=== PATIENT | female | born 2000 | race Caucasian/White ===

== ENCOUNTER 2021-12-11 12:35 | Emergency (ER) | payer OTHER ==
[2021-12-11 13:15] VITALS: BP 114/65; PULSE 112; RESP 20; TEMP 98.2
[2021-12-11] MEDS ORDERED: DIPH,PERTUS(ACELL)TETVAC-LF 0.5 ML VIAL IM ONE (13:33)
--- NOTE | 2021-12-11 13:43 | ED ---
Animal Bite HPI - General Chief Complaint: Animal Bite Stated Complaint: Cat bite Time Seen by Provider: 12/11/21 13:30 Source: patient, RN notes reviewed, old records reviewed Mode of arrival: ambulatory Limitations: no limitations - History of Present Illness Initial Comments: 21-year-old female presents to the emergency room after being bitten and sc ratched by household cat last night. Today she woke up with increased pain and swelling to the right forearm. She denies any fevers and no other injuries. She is not sure of her tetanus shot is up-to-date. No health problems no medications on a daily basis MD Complaint: animal bite -: days(s) (1) Right: Forearm Animal: cat Description: household pet Mechanism: bite, scratch Context: playing with animal Associated Symptoms: none - Related Data Patient Tetanus UTD: No Previous Rx's Medication Instructions Recorded Amoxic-Pot Clav 875-125Mg 1 tab PO BID 10 Days #20 tab 12/11/21 [Augmentin 875-125] Allergies Allergy/AdvReac Type Severity Reaction Status Date / Time No Known Allergies Allergy Verified 12/11/21 13:15 Review of Systems ROS Statement: Those systems with pertinent positive or pertinent negative responses have been documented in the HPI. ROS Other: All systems not noted in ROS Statement are negative. Past Medical History Past Medical History: No Reported History Past Surgical History: No Surgical Hx Reported General Exam Limitations: no limitations General appearance: alert, in no apparent distress Head exam: Present: atraumatic Eye exam: Present: normal appearance. Absent: scleral icterus, conjunctival injection Neck exam: Present: full ROM. Absent: meningismus Respiratory exam: Absent: respiratory distress, accessory muscle use Cardiovascular Exam: Present: tachycardia GI/Abdominal exam: Present: soft. Absent: tenderness Extremities exam: Present: full ROM, normal capillary refill Right Forearm Wrist exam: Present: tenderness, swelling, erythema (Proximal forearm), other (Multiple abrasions and puncture wounds right forearm) Neuro motor exam: Present: wrist extension intact Neurosensory exam: Present: radial nerve intact, ulnar nerve intact, median nerve intact Vascular: Present: normal capillary refill, radial pulse. Absent: vascular compromise Neurological exam: Present: alert, oriented X3, normal gait Psychiatric exam: Present: normal affect, normal mood Skin exam: Present: warm, dry, erythema (approx 4cm x 3cm ) Course Vital Signs 12/11/21 13:12 Temperature 98.2 F Pulse Rate 112 H Respiratory 20 Rate Blood Pressure 114/65 O2 Sat by Pulse 99 Oximetry Medical Decision Making - Medical Decision Making Patient presents with a cat scratches and bites to her right forearm last night by household cat. She has full range of motion. There is no evidence of phlebitis. There is a 4 x 3 cm area of erythema she will be treated for cellulitis with augmentin. Patient's tetanus shot was also updated. Her and family member were directed to return to the emergency room with any increased pain, swelling or fevers. The area of erythema was outlined with skin marker. They're agreeable to this plan of care. Case discussed with Dr. Connor. Disposition Clinical Impression: Cat bite Disposition: HOME SELF-CARE Condition: Good Instructions (If sedation given, give patient instructions): Animal Bite (ED) Additional Instructions: Take antibiotics as prescribed and return to emergency room if any new or concerning symptoms including increased redness, pain or fevers. Prescriptions: Amoxic-Pot Clav 875-125Mg [Augmentin 875-125] 1 tab PO BID 10 Days #20 tab Is patient prescribed a controlled substance at d/c from ED?: No Referrals: Justyna Pak MD [Primary Care Provider] - 1-2 days Time of Disposition: 13:47
[2021-12-11] MEDS ORDERED: AMOXIC-POT CLAV 875-125MG 1 EACH TAB PO STA (13:47)
== END 2021-12-11 14:02 | disposition home or self-care (01) ==
LOC: EC 12:35
DX: S51.851A Open bite of right forearm, initial encounter (principal); Z23 Encounter for immunization; W55.01XD Bitten by cat, subsequent encounter
CPT/HCPCS: 90471; 90715; 99283

== ENCOUNTER 2022-01-30 20:14 | Emergency (ER) | payer OTHER ==
[2022-01-30 20:38] VITALS: TEMP 99
[2022-01-30] MEDS ORDERED: KETOROLAC 15 MG/ML 1 ML VIAL IM STA (21:04)
--- NOTE | 2022-01-30 21:41 | XR ---
EXAMINATION TYPE: XR ankle complete LT DATE OF EXAM: 01/30/2022 COMPARISON: NONE HISTORY: Ankle pain TECHNIQUE: 3 views FINDINGS: Ankle mortise is anatomic. I see no fracture nor dislocation. Joint spaces are normal. IMPRESSION: Negative left ankle exam. No fracture.
--- NOTE | 2022-01-30 21:42 | XR ---
EXAMINATION TYPE: XR tibia fibula LT DATE OF EXAM: 01/30/2022 COMPARISON: NONE HISTORY: Ankle pain TECHNIQUE: 2 view FINDINGS: The tibia and fibula appear intact. Knee joint and ankle joint appear intact. I see no frac ture. IMPRESSION: Negative left tibia and fibula exam.
--- NOTE | 2022-01-30 21:43 | XR ---
EXAMINATION TYPE: XR foot complete LT DATE OF EXAM: 01/30/2022 COMPARISON: NONE HISTORY: Pain TECHNIQUE: 3 views FINDINGS: Metatarsals are intact. The toes appear intact. I see no fracture nor dislocation. Joint sp aces are fairly normal. IMPRESSION: Negative left foot exam. No fracture.
--- NOTE | 2022-01-30 22:04 | ED ---
Lower Extremity Injury HPI - General Chief Complaint: Extremity Injury, Lower Stated Complaint: left ankle pain after fall down 4 stairs Time Seen by Provider: 01/30/22 20:40 Source: patient Mode of arrival: ambulatory Limitations: no limitations - History of Present Illness Initial Comments: Patient is a 21-year-old female presenting with chief complaint of left ankle pain. Patient states that she tripped while walking up the stairs, causing her ankle to roll. She is complaining of pain mainly near the lateral portion of the ankle, there is some radiation of pain to the lower leg and foot. Patient admits to pain with range of motion and swelling. Denies any numbness, tingling, weakness, loss of range of motion. - Related Data Previous Rx's Medication Instructions Recorded Amoxic-Pot Clav 875-125Mg 1 tab PO BID 10 Days #20 tab 12/11/21 [Augmentin 875-125] Allergies Allergy/AdvReac Type Severity Reaction Status Date / Time No Known Allergies Allergy Verified 01/30/22 20:38 Review of Systems ROS Statement: Those systems with pertinent positive or pertinent negative responses have been documented in the HPI. ROS Other: All systems not noted in ROS Statement are negative. Past Medical History Past Medical History: No Reported History History of Any Multi-Drug Resistant Organisms: None Reported Past Surgical History: No Surgical Hx Reported Past Psychological History: No Psychological Hx Reported Smoking Status: Current every day smoker Past Alcohol Use History: Daily Past Drug Use History: None Reported General Exam Limitations: no limitations General appearance: alert, in no apparent distress Head exam: Present: atraumatic, normocephalic, normal inspection Eye exam: Present: normal appearance, EOMI. Absent: scleral icterus, periorbital swelling Neck exam: Present: normal inspection Respiratory exam: Present: normal lung sounds bilaterally. Absent: respiratory distress, wheezes, rales, rhonchi, stridor Cardiovascular Exam: Present: regular rate, normal rhythm, normal heart sounds. Absent: systolic murmur, diastolic murmur, rubs, gallop, clicks Left Lower Leg exam: Present: normal inspection, tenderness. Absent: swelling Ankle exam: Present: full ROM, tenderness, swelling Foot/Toe exam: Present: full ROM, tenderness, swelling Neurovascular tendon exam: Present: no vascular compromise. Absent: motor deficit, sensory deficit Gait: antalgic Neurological exam: Present: alert, oriented X3, CN II-XII intact Psychiatric exam: Present: normal affect, normal mood Skin exam: Present: warm, dry, intact, normal color. Absent: rash Course Vital Signs 01/30/22 20:35 Temperature 99 F Pulse Rate 86 Respiratory 20 Rate Blood Pressure 120/79 O2 Sat by Pulse 99 Oximetry Medical Decision Making - Medical Decision Making Patient is a 21-year-old female presenting with chief complaint of left ankle pain. Patient injured it today while walking up the stairs. On examination there is tenderness and swelling. Pain is mainly focused near the lateral portion of the ankle. X-ray shows no acute fracture or dislocation. Patient is provided with ankle stirrup brace and crutches. Instructed on supportive treatment with rest, ice, compression, elevation as well as alternating Motrin and Tylenol. I'll up with PCP on Wednesday. Report back to ER if any new or worsening symptoms. Discussed return parameters answered all questions. Patient conveyed verbal understanding and agreed to the plan. My attending is Dr. Castle. Disposition Clinical Impression: Ankle sprain Disposition: HOME SELF-CARE Condition: Good Instructions (If sedation given, give patient instructions): Ankle Sprain (ED) Additional Instructions: Follow-up with PCP on Wednesday. Take Motrin and Tylenol as needed for pain control. Rest, ice, compress, elevate the joint. Use crutches and ankle brace. Is patient prescribed a controlled substance at d/c from ED?: No Referrals: Justyna Pak MD [Primary Care Provider] - 1-2 days Time of Disposition: 22:04
[2022-01-30 22:43] VITALS: BP 124/87; PULSE 75; RESP 16
== END 2022-01-30 22:43 | disposition home or self-care (01) ==
LOC: EC 20:14
DX: S93.402A Sprain of unspecified ligament of left ankle, initial encounter (principal); F17.200 Nicotine dependence, unspecified, uncomplicated; W10.9XXA Fall (on) (from) unspecified stairs and steps, initial encounter
CPT/HCPCS: 73590; 73610; 73630; 99283; 96372; L4350; J1885

== ENCOUNTER 2023-02-03 12:19 | Emergency (ER) | payer OTHER ==
[2023-02-03 12:41] VITALS: RESP 18
--- NOTE | 2023-02-03 14:49 | US ---
EXAMINATION TYPE: Transabdominal DATE OF EXAM: 02/03/2023 2:16 PM COMPARISON: NONE CLINICAL INDICATION: Female, 22 years old with history of bleeding; Bleeding. . *Patient thinks she is about 7 weeks . EXAM PERFORMED: Transvaginal (TV) and Transabdominal (TA) EXAM MEASUREMENTS: GESTATIONAL AGE / DATING Physician Established: Exact dates unknown, patient states she is about 7 weeks . Dates by LMP: Unknown Dates by First Scan: This is first scan at this facility. Dates by Current Scan for: Irregular-appearing gestational sac measures (9 weeks/ 0 days), irregu lar hyperechoic solid component within unable to define a clear CRL. MATERNAL ANATOMY Uterus: 7.7 x 5.5 x 4.3 cm Right Ovary: 2.6 x 1.7 x 1.8 cm Left Ovary: 2.2 x 1.1 x 0.9 cm Post CDS / Adnexa: Appear wnl Presence of free fluid: none Presence of corpus luteal cyst: Possible within right ovary, complex area seen: 1.3 x 1.0 x 1.0 cm. Presence of subchorionic bleed: GESTATION / SURVEY CRL: Clear pole not seen, Hyperechoic, irregular-shaped area seen within gestational sac measur es: 2.9 x 3.0 x 2.5 cm. MSD: 3.82 cm (9 weeks/0 days) Yolk Sac (normal less than 6mm): Not seen Heart Rate: No heart tones seen at this time IUP: No cardiac activity noted on today's scan-irregular shaped hyperechoic area seen within gestati onal sac as mentioned above. Date of LMP: Unknown Beta HcG (if available): Not available IMPRESSION: Findings likely in the basis of demise. Correlate clinically and with serial beta-hCG and/or ul trasound.
--- NOTE | 2023-02-03 15:00 | ED ---
Female Urogenital HPI - General Chief complaint: Vaginal Bleeding Stated complaint: vaginal bleeding - 7 wks Time Seen by Provider: 02/03/23 12:45 Source: patient, RN notes reviewed Mode of arrival: ambulatory Limitations: no limitations - History of Present Illness Initial comments: This a 22-year-old female presents emergency Department chief complaint vaginal bleeding early . Patient states that she believes she is around 7 weeks she had an ultrasound last [facility] showing a normal intrauterine with heartbeat. Patient states she was told she was over 6 weeks. Patient states that she started noticing some spotting and mild cramping. Denies any severe pain denies nausea vomiting diarrhea constipation states this is her first . Patient does not know blood type is. She has not had any recent lab work. - Related Data Previous Rx's Medication Instructions Recorded Amoxic-Pot Clav 875-125Mg 1 tab PO BID 10 Days #20 tab 12/11/21 [Augmentin 875-125] Allergies Allergy/AdvReac Type Severity Reaction Status Date / Time latex Allergy Rash/Hives Verified 02/03/23 12:41 Review of Systems ROS Statement: Those systems with pertinent positive or pertinent negative responses have been documented in the HPI. ROS Other: All systems not noted in ROS Statement are negative. Past Medical History Past Medical History: No Reported History History of Any Multi-Drug Resistant Organisms: None Reported Past Surgical History: No Surgical Hx Reported Past Psychological History: No Psychological Hx Reported Smoking Status: Vaper Past Alcohol Use History: None Reported Past Drug Use History: None Reported General Exam Limitations: no limitations General appearance: alert, in no apparent distress Head exam: Present: atraumatic, normocephalic, normal inspection Eye exam: Present: normal appearance, PERRL, EOMI. Absent: scleral icterus, conjunctival injection, periorbital swelling ENT exam: Present: normal exam, normal oropharynx, mucous membranes moist Neck exam: Present: normal inspection, full ROM. Absent: tenderness, meningismus, lymphadenopathy Respiratory exam: Present: normal lung sounds bilaterally. Absent: respiratory distress, wheezes, rales, rhonchi, stridor Cardiovascular Exam: Present: regular rate, normal rhythm, normal heart sounds. Absent: systolic murmur, diastolic murmur, rubs, gallop, clicks GI/Abdominal exam: Present: soft, normal bowel sounds. Absent: distended, tenderness, guarding, rebound, rigid Course Vital Signs 02/03/23 02/03/23 02/03/23 12:37 14:19 15:03 Temperature 98.7 F 97.6 F Pulse Rate 75 85 76 Respiratory 18 18 18 Rate Blood Pressure 120/71 120/68 115/74 O2 Sat by Pulse 99 99 100 Oximetry Medical Decision Making - Medical Decision Making Was pt. sent in by a medical professional or institution (ERROL Rutledge, SPACE SYSTEMS OPERATIONS MANAGER, urgent c are, hospital, or [facility]...) When possible be specific @ -No Did you speak to anyone other than the patient for history (EMS, parent, family, police, friend...)? What history was obtained from this source @ -No Did you review nursing and triage notes (agree or disagree)? Why? @ -I reviewed and agree with nursing and triage notes Were old charts reviewed (outside hosp., previous admission, EMS record, old EKG, old radiological studies, urgent care reports/EKG's, [facility] records)? Report findings @ -No old charts were reviewed Differential Diagnosis (chest pain, altered mental status, abdominal pain women, abdominal pain men, vaginal bleeding, weakness, fever, dyspnea, syncope, headache, dizziness, GI bleed, back pain, seizure, CVA, palpatations, mental health, musculoskeletal)? @ -Miscarriage, vaginal bleeding early , subchorionic hemorrhage EKG interpreted by me (3pts min.). @ -None X-rays interpreted by me (1pt min.). @ -None done CT interpreted by me (1pt min.). @ -None done U/S interpreted by me (1pt. min.). @ -Ultrasound shows evidence of demise. There is no evidence of heart beat What testing was considered but not performed or refused? (CT, X-rays, U/S, labs)? Why? @ -None What meds were considered but not given or refused? Why? @ -None Did you discuss the management of the patient with other professionals (professionals i.e. ERROL Rutledge, SPACE SYSTEMS OPERATIONS MANAGER, lab, RT, psych nurse, social media assistant, corncob pipe supervisor, teacher, chief mechanical officer, case worker)? Give summary @ -No Was smoking cessation discussed for >3mins.? @ -No Was critical care preformed (if so, how long)? @ -No Were there social determinants of health that impacted care today? How? (Homelessness, low income, unemployed, alcoholism, drug addiction, transportation, low edu. Level, literacy, decrease access to med. care, nursing home, rehab)? @ -No Was there de-escalation of care discussed even if they declined (Discuss DNR or withdrawal of care, Hospice)? DNR status @ -No What co-morbidities impacted this encounter? (DM, HTN, Smoking, COPD, CAD, Cancer, CVA, ARF, Chemo, Hep., AIDS, mental health diagnosis, sleep apnea, morbid obesity)? @ -None Was patient admitted / discharged? Hospital course, mention meds given and route, prescriptions, significant lab abnormalities, going to OR and other pertinent info. @ -Discharge patient has evidence of demise, miscarriage. Patient is a positive blood type. Patient is advised to follow-up with [facility] return parameters discussed. course Undiagnosed new problem with uncertain prognosis? @ -No Drug Therapy requiring intensive monitoring for toxicity (Heparin, Nitro, Insulin, Cardizem)? @ -No Were any procedures done? @ -No Diagnosis/symptom? @ -Miscarriage Acute, or Chronic, or Acute on Chronic? @ -Acute Uncomplicated (without systemic symptoms) or Complicated (systemic symptoms)? @ -Uncomplicated Side effects of treatment? @ -No Exacerbation, Progression, or Severe Exacerbation? @ -No Poses a threat to life or bodily function? How? (Chest pain, USA, AR, pneumonia, PE, COPD, DKA, ARF, appy, cholecystitis, CVA, Diverticulitis, Homicidal, Suicidal, threat to staff... and all critical care pts) @ -No - Lab Data Lab Results 02/03/23 02/03/23 Range/Units 13:14 13:14 HCG, Quant 148178.0 mIU/mL Blood Type A Positive Blood Type Recheck No Previous Record Bld Type Recheck Status [facility] ONLY Disposition Clinical Impression: Miscarriage Disposition: HOME SELF-CARE Condition: Stable Instructions (If sedation given, give patient instructions): Miscarriage (ED) Additional Instructions: Please return to the Emergency Department if symptoms worsen or any other concerns. Is patient prescribed a controlled substance at d/c from ED?: No Referrals: Justyna Pak MD [Primary Care Provider] - 1-2 days Time of Disposition: 14:59
[2023-02-03 15:09] VITALS: BP 115/74; PULSE 76; TEMP 97.6
== END 2023-02-03 15:10 | disposition home or self-care (01) ==
LOC: EC 12:19
DX: O03.9 Complete or unspecified spontaneous abortion without complication (principal); F17.290 Nicotine dependence, other tobacco product, uncomplicated; Z91.040 Latex allergy status
CPT/HCPCS: 36415; 76801; 76817; 84702; 86900; 86901; 99284

== ENCOUNTER 2023-05-07 21:20 | Outpatient (CLI) | payer OTHER ==
--- NOTE | 2023-05-08 03:06 | US ---
EXAM: US , Transvaginal CLINICAL HISTORY: Vaginal bleeding in . The patient has not had follow-up since her previous ultrasound examination. Reported cramping and dark red vaginal bleeding 1 week. Reported beta-hCG 174,995. TECHNIQUE: Real-time transvaginal obstetrical ultrasound of the maternal pelvis and a first trimester with image documentation. Transvaginal imaging was used for better evaluation of the fetus and adnexa. COMPARISON: First trimester pelvic ultrasound 02/03/2023 FINDINGS: Gestation: The uterus is enlarged measuring 10.4 x 7.1 x 10.1 cm. The previously noted gestational sac with previously seen internal tissue is the longer identified. In this region, there is now abnormal spongiform- appearing heterogeneous isoechoic to slightly hyperechoic predominantly solid tissue with minimal internal cystic components measuring up to 5.1 cm in diameter within extent of 8.5 x 8.1 cm. There is no appreciable internal vascular flow noted. Placenta/amniotic fluid: Cannot be adequately evaluated due to the early gestational age. Uterus/cervix: Unremarkable. No myometrial mass. Ovaries: The ovaries are not identified transabdominally or endovaginally. No adnexal mass. Free fluid: No free fluid. IMPRESSION: 1. The uterus is enlarged measuring 10.4 x 7.1 x 10.1 cm. The previously noted gestational sac with previously seen internal tissue is the longer identified. In this region, there is now abnormal spongiform- appearing heterogeneous isoechoic to slightly hyperechoic predominantly solid tissue with minimal internal cystic components measuring up to 5.1 cm in diameter within extent of 8.5 x 8.1 cm. There is no appreciable internal vascular flow noted. Given the patient's beta-hCG levels, the primary considerations are residual products of conception or a molar , given abnormal central tissue within the previously presumed gestational sac. 2. The ovaries are not identified transabdominally or endovaginally. This is presumably related to uterine size and bowel gas.
[2023-05-08 03:31] LABS: Basophils % (A) 0 %; Eosinophils # (A) 0.1 k/uL (0-0.7); Eosinophils % (A) 1 %; HCT 40.3 % (34.0-46.0); HGB 13.6 gm/dL (11.4-16.0); Lymphocytes # (A) 1.6 k/uL (1.0-4.8); Lymphocytes % (A) 21 %; MCH 31.9 pg (25.0-35.0); MCHC 33.7 g/dL (31.0-37.0); MCV 94.7 fL (80.0-100.0); Mean Platelet Volume 11.7; Monocytes # (A) 0.6 k/uL (0-1.0); Monocytes % (A) 8 %; Neutrophils # (A) 5.2 k/uL (1.3-7.7); Neutrophils % (A) 68 %; Platelet Count 157 k/uL (150-450); RBC 4.26 m/uL (3.80-5.40); RDW 12.8 % (11.5-15.5); WBC 7.7 k/uL (3.8-10.6)
[2023-05-08 03:56] VITALS: BP 121/70; PULSE 72; RESP 16; TEMP 96.8
--- NOTE | 2023-05-10 13:31 | P.MSEPDOC ---
Presenting Problems - Arrival Data Date of Arrival on Unit: 05/07/23 Time of Arrival on Unit: 21:20 Mode of Transport: Ambulatory - Complaint OB-Reason for Admission/Chief Complaint: Vaginal Bleeding Comment: Patient presents to triage with complaints of vaginal bleeding that has lasted 4/5 days. Medical History - Information : 1 Para: 0 Term: 0 : 0 Abortions: Spontaneous or Elective: 0 Number of Living Children: 0 - Gestational Age Gestational Age by ADITYA (wks/days): 20 Weeks and 5 Days - History Complications: No Care Review of Systems - Review of Systems Constitutional: No problems Breast: No problems ENT: No problems Cardiovascular: No problems Respiratory: No problems Gastrointestinal: No problems Genitourinary: No problems Musculoskeletal: No problems Neurological: No problems Skin: No problems Vital Signs - Temperature Temperature: 96.8 F Temperature Source: Temporal Artery Scan - Pulse Pulse Oximetery Pulse Rate: 72 Pulse Assessment Method: Pulse Oximetry - Respirations Respiratory Rate: 16 Oxygen Delivery Method: Room Air O2 Sat by Pulse Oximetry: 98 - Blood Pressure Right Arm Blood Pressure: 121/70 Blood Pressure Mean: 87 Blood Pressure Source: Automatic Cuff Physician Notification - Physician Notified Physician Notified Date: 05/08/23 Physician Notified Time: 03:10 Physician: Skye Henry New Order Received: Yes (Discharge home) Maternal Triage Index - Maternal Triage Index Presenting for scheduled procedure w/no complaint: No - Stat/Priority 1 Stat Priority 1: Yes Provider Notified: Skye Henry Provider Notified Time: 22:04 Criteria Met for Priority 1: Patient presents to triage with complaints of vaginal bleeding for 4/5 days. not FHR noted on doppler. Disposition - Disposition OB Disposition: Discharge to home, Written follow up instructions reviewed I agree with the RN Medical Screening Exam: Yes Case reviewed; plan agreed upon as documented in EMR&OBIX.: Yes Comments: Pt. was instructed to come to my office on 05/10/2023 at 10 am to discuss D&C for probable molar . Diagnosis: MISSED
== END 2023-05-08 03:54 ==
LOC: FBPOP 21:20
PROVIDERS: ATTEND Obstetrics & Gynecology
DX: O02.1 Missed abortion (principal); Z3A.20 20 weeks gestation of pregnancy; Z91.040 Latex allergy status
CPT/HCPCS: 36415; 86900; 86901; 85025; 86850; 81025; 84702; 76801; 76817; G0463; 99213

== ENCOUNTER → 2023-05-24 | Outpatient (CLI) | payer OTHER ==
[2023-05-24 17:07] LABS: HCT 42.5 % (34.0-46.0); HGB 13.7 gm/dL (11.4-16.0); Hypochromasia Slight; MCHC 32.3 g/dL (31.0-37.0); MCV 96.1 fL (80.0-100.0); Mean Platelet Volume 8.1; Platelet Count 261 k/uL (150-450); RBC 4.42 m/uL (3.80-5.40); WBC 8.2 k/uL (3.8-10.6)
[2023-05-24 19:40] LABS: Band Neutrophils % 2 %; Lymphocytes # (M) 2.13 k/uL (1.0-4.8); Metamyelocytes # (M) 0.25 k/uL (0); Metamyelocytes % 3 %; Monocytes # (M) 0.33 k/uL (0-1.0); Myelocytes # (M) 0.08 k/uL (0); Myelocytes % 1 %; Neutrophils % (M) 65 %; Nucleated Red Blood Cells 0 /100 WBC (0-0); Total Cells Counted 200
== END | disposition home or self-care (01) ==
LOC: LABPAT 16:18
PROVIDERS: ATTEND Obstetrics & Gynecology
DX: Z01.812 Encounter for preprocedural laboratory examination (principal); O03.4 Incomplete spontaneous abortion without complication; Z3A.00 Weeks of gestation of pregnancy not specified
CPT/HCPCS: 84702; 85025; 86480

== ENCOUNTER 2023-05-25 06:21 | Day surgery (SDC) | payer OTHER ==
--- NOTE | 2023-05-24 18:05 | P.HPOB ---
History of Present Illness H&P Date: 05/24/23 Chief Complaint: Incomplete This is a 22-year-old female 1 para 0 who was seen in obstetrical triage on 05/08/2023. At that time she complained of vaginal bleeding. Ultrasound was performed at that time that showed an enlarged uterus measuring 10.4 x 7.1 x 10.1 cm and spongiform appearing heterogeneous isoechoic to slightly hyperechoic predominantly solid tissue with minimal internal cystic components measuring up to 5.1 cm in diameter with extent of 8.5 x 8.1 cm. Radiologist stated primary considerations would be molar versus retained products of conception. There was no appreciable internal vascular flow noted. She had previously had an ultrasound in the emergency room on 02/03/2023 that showed a hyperechoic irregular shaped area seen within the gestational sac measuring 2.9 x 3 x 2.5 cm with no cardiac activity noted. She never followed up with obstetrics at that time but did have a few days of brownish spotting after that. She states she had previously been told that she had a viable at a clinic in [facility]. She was advised to follow up with me in the office on May 10 but her discharge paperwork had the wrong date on it so she did not follow up until now. She states she began bleeding on May 18 very heavy and passed a large amount of tissue. She did show me a picture and it did appear to be products of conception. She states her bleeding has slowed down since that time but she is still bleeding lightly. Ultrasound was performed in my office today and it showed a lining thickened to about 1 cm with some vascularity noted. echocardiography tech could not rule out retained products of conception. Patient's blood type is A+ and her beta hCG level was approximately 175,000. Obstetrical history: . Gynecologic history: No history of sexual transmitted diseases. Social history: She is not currently working. Review of Systems Constitutional: Denies chills, Denies fever Eyes: denies blurred vision, denies pain Ears, nose, mouth and throat: Denies headache, Denies sore throat Cardiovascular: Denies chest pain, Denies shortness of breath Respiratory: Denies cough Gastrointestinal: Denies abdominal pain, Denies diarrhea, Denies nausea, Denies vomiting Genitourinary: Reports abnormal vaginal bleeding, Reports pelvic pain (Mild) Musculoskeletal: Denies myalgias Integumentary: Denies pruritus, Denies rash Neurological: Denies numbness, Denies weakness Psychiatric: Denies anxiety, Denies depression Endocrine: Denies fatigue, Denies weight change Past Medical History Additional Past Medical History / Comment(s): recent miscarriage, having some vag. bleeding but not heavy History of Any Multi-Drug Resistant Organisms: None Reported Past Surgical History: No Surgical Hx Reported Additional Past Surgical History / Comment(s): never had surgery Additional Past Anesthesia/Blood Transfusion Reaction / Comment(s): no family problems w/surg. or anesthesia that she knows of Past Psychological History: No Psychological Hx Reported Smoking Status: Current every day smoker, Heavy tobacco smoker Past Alcohol Use History: None Reported Past Drug Use History: None Reported - Past Family History Mother Family Medical History: No Reported History Medications and Allergies Home Medications Medication Instructions Recorded Confirmed Type No Known Home Medications 05/24/23 05/24/23 History Allergies Allergy/AdvReac Type Severity Reaction Status Date / Time latex Allergy Rash/Hives Verified 05/24/23 15:00 Exam Osteopathic Statement: *. No significant issues noted on an osteopathic structural exam other than those noted in the History and Physical/Consult. Intake and Output 05/24/23 05/24/23 05/24/23 06:59 14:59 22:59 Other: Weight 0 g 54.431 kg Gen.: Well-developed well-nourished female in no acute distress HEENT: Within normal limits Heart: Regular rate and rhythm Lungs: Clear to auscultation bilaterally Abdomen: Soft, nontender Pelvic exam: Uterus is normal sized with no adnexal masses palpated. Uterus is mildly tender. Scant bloody brown discharge is noted. Extremities: Negative Homans Assessment and Plan (1) Incomplete Status: Acute Code(s): O03.4 - INCOMPLETE SPONTANEOUS WITHOUT COMPL ICATION SNOMED Code(s): 778208800 Plan: Proceed with suction dilation and curettage. I have discussed the risks, benefits, and alternative therapies for the above- mentioned procedure and for both sedation/anesthesia as well as necessary blood products administration, if indicated, as they pertain to this patient. The patient has indicated her understanding and acceptance of the risks and procedures discussed.
[~2023-05-25 06:21] MED LIST: DEXAMETHASONE SOD PHOSPHATE 4 MG/ML 1 ML VIAL IV ONE; LACTATED RINGERS 1,000 ML IV SCH; ONDANSETRON 4 MG/2 ML VIAL IVP ONE; Pre Op ABX Message 1 EACH MISC MISCELLANE ONE; SCOPOLAMINE 1 MG/72 HR PATCH TRANSDERM ONE
[2023-05-25] MEDS ORDERED: MIDAZOLAM 2 MG/2 ML VIAL IV PRN (07:00)
[2023-05-25] MEDS ORDERED: LIDOCAINE 1% INJ 10MG/ML (20 ML MDV) ONE (07:25)
[2023-05-25] MEDS ORDERED: PROPOFOL 10 MG/ML 20 ML VIAL IV ONE (07:25)
[2023-05-25] MEDS ORDERED: fentaNYL (PF) 50 MCG/ML 2 ML AMP ONE (07:25)
[2023-05-25] MEDS ORDERED: MIDAZOLAM 2 MG/2 ML VIAL ONE (07:25)
[2023-05-25] MEDS ORDERED: KETOROLAC 15 MG/ML 1 ML VIAL ONE (07:25)
[2023-05-25 07:31] VITALS: RESP 16
--- NOTE | 2023-05-25 07:57 | P.OP ---
Date of Procedure: 05/25/23 Preoperative Diagnosis: Incomplete Postoperative Diagnosis: Same Procedure(s) Performed: Suction dilation and curettage Anesthesia: other (Mask general) Surgeon: Skye Henry Estimated Blood Loss (ml): 5 Pathology: other (Products of conception) Condition: stable Disposition: same day Indications for Procedure: This is a 22-year-old female 1 para 0 who was seen in obstetrical triage on 05/08/2023. At that time she complained of vaginal bleeding. Ultrasound was performed at that time that showed an enlarged uterus measuring 10.4 x 7.1 x 10.1 cm and spongiform appearing heterogeneous isoechoic to slightly hyperechoic predominantly solid tissue with minimal internal cystic components measuring up to 5.1 cm in diameter with extent of 8.5 x 8.1 cm. Radiologist stated primary considerations would be molar versus retained products of conception. There was no appreciable internal vascular flow noted. She had previously had an ultrasound in the emergency room on 02/03/2023 that showed a hyperechoic irregular shaped area seen within the gestational sac measuring 2.9 x 3 x 2.5 cm with no cardiac activity noted. She never followed up with obstetrics at that time but did have a few days of brownish spotting after that. She states she had previously been told that she had a viable at a clinic in [facility]. She was advised to follow up with me in the office on May 10 but her discharge paperwork had the wrong date on it so she did not follow up until now. She states she began bleeding on May 18 very heavy and passed a large amount of tissue. She did show me a picture and it did appear to be products of conception. She states her bleeding has slowed down since that time but she is still bleeding lightly. Ultrasound was performed in my office today and it showed a lining thickened to about 1 cm with some vascularity noted. instructional media services technician could not rule out retained products of conception. Patient's blood type is A+ and her beta hCG level was approximately 175,000. Operative Findings: Uterus is anteverted and sounded to 7.5 cm. Minimal amount of tissue or products of conception is obtained. No adnexal masses are palpated. Description of Procedure: The patient is taken to the operating room where she is placed in the dorsal lithotomy position. She is prepped and draped in the normal sterile fashion. Her bladder is drained with a catheter. Examination is performed under anesthesia. Uterus is found to be small, anteverted, with no adnexal masses noted. Next a weighted speculum was placed in the patient's vagina and a right angle retractor was used to visualize the cervix. The anterior lip of the cervix is grasped with a long Allis clamp. Next the uterus is sounded to 7-1/2 cm. Cervix is gently dilated with Rojas dilators until a 8 mm curved suction curet could be placed. Suction curetting was performed with minimal tissue obtained. Next a medium-size sharp curet was gently introduced and gentle sharp curettage was performed with no further tissue obtained. Next suction curetting was performed one further time to remove any blood clots from the intrauterine cavity. The Allis clamp was removed from the anterior lip of the cervix. Minimal bleeding is noted. All sponge counts are correct. The patient is then taken to recovery room in stable condition.
[2023-05-25] MEDS: HYDROmorphone 0.5 MG/0.5 ML SYRINGE IVP PRN ×2 (08:19→08:29)
[2023-05-25 08:30] VITALS: TEMP 96.8
[2023-05-25 10:02] VITALS: BP 133/88; PULSE 83
== END 2023-05-25 09:54 | disposition home or self-care (01) ==
LOC: OR 06:21
PROVIDERS: ATTEND Obstetrics & Gynecology
DX: O03.4 Incomplete spontaneous abortion without complication (principal); F17.200 Nicotine dependence, unspecified, uncomplicated; Z91.040 Latex allergy status; Z79.899 Other long term (current) drug therapy; Z98.890 Other specified postprocedural states
CPT/HCPCS: 86900; 86901; 86850; 59812; J2250; J1100; J2405; J2001; J3010; J1885; J2704; J1170

== ENCOUNTER 2024-07-08 15:05 | Emergency (ER) | payer OTHER ==
--- NOTE | 2024-07-08 16:22 | ED ---
Female Urogenital HPI - General Source: patient, RN notes reviewed Mode of arrival: ambulatory Limitations: no limitations - History of Present Illness MD Complaint: vaginal bleeding <Moody Moreno - Last Filed: 07/08/24 16:20> <Bijan Campbell - Last Filed: 07/09/24 02:51> - General Stated complaint: Vaginal bleeding(Preg.Unsure how far along) Time Seen by Provider: 07/08/24 15:17 - History of Present Illness Initial comments: Quick note: This is a A1 23-year-old female for blood in toilet and spotting. Endorses minimal abdominal pain with no abnormal vaginal discharge or urinary symptoms. Patient states she is between 9 and 16 weeks . States she is not had an OB appointment or had an ultrasound performed since the start of her . States she is scheduled for her first OB appointment next week. Endorses prior history of miscarriage. (Moody Moreno) 23-year-old female presenting with chief complaint of spotting. Patient is curr ently , unsure how far along she is. Estimates her LMP to be sometime in April. This is her second , history of miscarriage. No dysuria, fever, chills, nausea, vomiting, flank pain. Spotting started today, she came right to the ER when she noticed it. States that she has passed 1 blood clot. Bleeding has since slowed down. (Bijan Campbell) - Related Data Home Medications Medication Instructions Recorded Confirmed No Known Home Medications 05/24/23 05/24/23 Allergies Allergy/AdvReac Type Severity Reaction Status Date / Time latex Allergy Rash/Hives Verified 07/08/24 16:38 plastic Allergy Unknown Uncoded 07/08/24 16:38 Review of Systems ROS Other: All systems not noted in ROS Statement are negative. <Moody Moreno - Last Filed: 07/08/24 16:20> ROS Other: All systems not noted in ROS Statement are negative. <Bijan aCmpbell - Last Filed: 07/09/24 02:51> ROS Statement: Those systems with pertinent positive or pertinent negative responses have been documented in the HPI. Past Medical History Past Medical History: No Reported History Additional Past Medical History / Comment(s): recent miscarriage, having some vag. bleeding but not heavy History of Any Multi-Drug Resistant Organisms: None Reported Past Surgical History: No Surgical Hx Reported Additional Past Surgical History / Comment(s): never had surgery Additional Past Anesthesia/Blood Transfusion Reaction / Comment(s): no family problems w/surg. or anesthesia that she knows of Smoking Status: Current every day smoker Past Alcohol Use History: Occasional Past Drug Use History: Marijuana <Moody Moreno - Last Filed: 07/08/24 16:20> General Exam <Moody Moreno - Last Filed: 07/08/24 16:20> Limitations: no limitations General appearance: alert, in no apparent distress Head exam: Present: atraumatic, normocephalic, normal inspection Eye exam: Present: normal appearance, EOMI Neck exam: Present: normal inspection. Absent: meningismus Respiratory exam: Present: normal lung sounds bilaterally. Absent: respiratory distress, wheezes, rales, rhonchi, stridor Cardiovascular Exam: Present: regular rate, normal rhythm, normal heart sounds. Absent: systolic murmur, diastolic murmur, rubs, gallop, clicks GI/Abdominal exam: Present: soft. Absent: distended, tenderness, guarding, rebound, rigid Neurological exam: Present: alert, oriented X3 Psychiatric exam: Present: normal affect, normal mood Skin exam: Present: warm, dry <Bijan Campbell - Last Filed: 07/09/24 02:51> - General Exam Comments Initial Comments: Visual Physical Exam Vital signs reviewed General: Well-appearing, nontoxic, no acute distress. Head: Normocephalic, atraumatic Eyes: PERRLA, EOMI ENT: Airway patent Chest: Nonlabored breathing Skin: No visual rash, normal skin tone Neuro: Alert and oriented 3 Musculoskeletal: No gross abnormalities (Moody Moreno) Course Vital Signs 07/08/24 07/08/24 07/08/24 16:38 20:08 22:14 Temperature 98.2 F 98.3 F 98.2 F Pulse Rate 87 75 Respiratory 18 16 Rate Blood Pressure 113/70 117/61 114/70 O2 Sat by Pulse 99 100 Oximetry Medical Decision Making <Moody Moreno - Last Filed: 07/08/24 16:20> - Lab Data Result diagrams: 07/08/24 20:23 07/08/24 20:23 <Bijan Campbell - Last Filed: 07/09/24 02:51> - Medical Decision Making I completed the quick note portion of this chart signed EDMOND Olivier (Moody Moreno) Was pt. sent in by a medical professional or institution (ERROL Rutledge, SITE PLANNER, urgent care, hospital, or group home...) When possible be specific @ -No Did you speak to anyone other than the patient for history (EMS, parent, family, police, friend...)? What history was obtained from this source @ -No Did you review nursing and triage notes (agree or disagree)? Why? @ -I reviewed and agree with nursing and triage notes Were old charts reviewed (outside hosp., previous admission, EMS record, old EKG, old radiological studies, urgent care reports/EKG's, group home records)? Report findings @ -No old charts were reviewed Differential Diagnosis (chest pain, altered mental status, abdominal pain women, abdominal pain men, vaginal bleeding, weakness, fever, dyspnea, syncope, headache, dizziness, GI bleed, back pain, seizure, CVA, palpatations, mental health, musculoskeletal)? @ -MDM Differential Vaginal Bleeding: Spontaneous , threatened , molar , ectopic , bloody show, incompetent cervix, abruptioplacenta, placenta previa, uterine rupture, dysfunctional uterine bleeding, hemorrhage, uterine fibroids. ... This is not meant to be an all-inclusive list EKG interpreted by me (3pts min.). @ -As above X-rays interpreted by me (1pt min.). @ -None done CT interpreted by me (1pt min.). @ -None done U/S interpreted by me (1pt. min.). @ -Ultrasound shows intrauterine gestational sac estimated at 6 weeks 1 day gestation. Yolk sac is present. No pole is identified. Short-term follow-up and correlation with beta hCG is recommended. Small subchorionic hemorrhage likely present adjacent to the gestational sac What testing was considered but not performed or refused? (CT, X-rays, U/S, labs)? Why? @ -None What meds were considered but not given or refused? Why? @ -None Did you discuss the management of the patient with other professionals (prof anandas i.e. ERROL Rutledge, SITE PLANNER, lab, RT, psych nurse, social worker psychiatric, wad compressor operator adjuster, teacher, probation officer, machine adjuster leader case trim)? Give summary @ -No Was smoking cessation discussed for >3mins.? @ -No Was critical care preformed (if so, how long)? @ -No Were there social determinants of health that impacted care today? How? (Homelessness, low income, unemployed, alcoholism, drug addiction, transportation, low edu. Level, literacy, decrease access to med. care, skilled nursing, rehab)? @ -No Was there de-escalation of care discussed even if they declined (Discuss DNR or withdrawal of care, Hospice)? DNR status @ -No What co-morbidities impacted this encounter? (DM, HTN, Smoking, COPD, CAD, Cancer, CVA, ARF, Chemo, Hep., AIDS, mental health diagnosis, sleep apnea, morbid obesity)? @ -None Was patient admitted / discharged? Hospital course, mention meds given and route, prescriptions, significant lab abnormalities, going to OR and other pertinent info. @ -23-year-old female presenting with chief complaint of spotting. Positive at home test, unsure how far along she is. Workup initiated by triage. No leukocytosis or anemia. Urine shows signs of contamination with 5 squamous cells. Blood type a positive, no RhoGAM indicated. hCG 17,955.4. Ultrasound shows single intrauterine gestation. Measures about 6 weeks. Patient is educated on today's findings. She is provided with an order for repeat beta-hCG in 48 hours. She has an appointment next week with LATHE SANDER. Follow-up with PCP. Report back to ER with any new or worsening symptoms. Discussed return parameters and answered all questions. Patient conveyed verbal understanding and agreed to the plan. I discussed this case in detail with my attending Dr. Wilson Undiagnosed new problem with uncertain prognosis? @ -No Drug Therapy requiring intensive monitoring for toxicity (Heparin, Nitro, Insulin, Cardizem)? @ -No Were any procedures done? @ -No Diagnosis/symptom? @ -Threatened Acute, or Chronic, or Acute on Chronic? @ -Acute Uncomplicated (without systemic symptoms) or Complicated (systemic symptoms)? @ -Uncomplicated Side effects of treatment? @ -No Exacerbation, Progression, or Severe Exacerbation? @ -No Poses a threat to life or bodily function? How? (Chest pain, USA, DE, pneumonia, PE, COPD, DKA, ARF, appy, cholecystitis, CVA, Diverticulitis, Homicidal, Suicidal, threat to staff... and all critical care pts) @ -Low likelihood (Bijan Campbell) - Lab Data Lab Results 07/08/24 07/08/24 07/08/24 Range/Units 20:23 20:23 20:23 WBC 5.3 (3.8-10.6) k/uL RBC 4.59 (3.80-5.40) m/uL Hgb 14.3 (11.4-16.0) gm/dL Hct 42.3 (34.0-46.0) % MCV 92.3 (80.0-100.0) fL MCH 31.2 (25.0-35.0) pg MCHC 33.8 (31.0-37.0) g/dL RDW 11.7 (11.5-15.5) % Plt Count 196 (150-450) k/uL MPV 8.3 Neutrophils % 61 % Lymphocytes % 28 % Monocytes % 7 % Eosinophils % 1 % Basophils % 1 % Neutrophils # 3.3 (1.3-7.7) k/uL Lymphocytes # 1.5 (1.0-4.8) k/uL Monocytes # 0.4 (0-1.0) k/uL Eosinophils # 0.0 (0-0.7) k/uL Basophils # 0.0 (0-0.2) k/uL Sodium 136 L (137-145) mmol/L Potassium 3.8 (3.5-5.1) mmol/L Chloride 104 (98-107) mmol/L Carbon Dioxide 23 (22-30) mmol/L Anion Gap 9 mmol/L BUN 9 (7-17) mg/dL Creatinine 0.61 (0.52-1.04) mg/dL Est GFR (CKD-EPI)AfAm >90 (>60 ml/min/1.73 sqM) Est GFR (CKD-EPI)NonAf >90 (>60 ml/min/1.73 sqM) Glucose 93 (74-99) mg/dL Calcium 9.1 (8.4-10.2) mg/dL Total Bilirubin 0.4 (0.2-1.3) mg/dL AST 21 (14-36) U/L ALT 13 (4-34) U/L Alkaline Phosphatase 31 L (38-126) U/L Total Protein 6.6 (6.3-8.2) g/dL Albumin 4.4 (3.5-5.0) g/dL HCG, Quant 31907.4 mIU/mL Urine Color Urine Appearance (Clear) Urine pH (5.0-8.0) Ur Specific [place] (1.001-1.035) Urine Protein (Negative) Urine Glucose (UA) (Negative) Urine Ketones (Negative) Urine Blood (Negative) Urine Nitrite (Negative) Urine Bilirubin (Negative) Urine Urobilinogen (<2.0) mg/dL Ur Leukocyte Esterase (Negative) Urine RBC (0-5) /hpf Urine WBC (0-5) /hpf Ur Squamous Epith Cells (0-4) /hpf Amorphous Sediment (None) /hpf Hyaline Casts (0-2) /lpf Urine Mucus (None) /hpf Urine HCG, Qual (Not Detectd) Blood Type A Positive Blood Type Recheck A Pos Bld Type Recheck Status No 07/08/24 07/08/24 Range/Units 20:33 20:33 WBC (3.8-10.6) k/uL RBC (3.80-5.40) m/uL Hgb (11.4-16.0) gm/dL Hct (34.0-46.0) % MCV (80.0-100.0) fL MCH (25.0-35.0) pg MCHC (31.0-37.0) g/dL RDW (11.5-15.5) % Plt Count (150-450) k/uL MPV Neutrophils % % Lymphocytes % % Monocytes % % Eosinophils % % Basophils % % Neutrophils # (1.3-7.7) k/uL Lymphocytes # (1.0-4.8) k/uL Monocytes # (0-1.0) k/uL Eosinophils # (0-0.7) k/uL Basophils # (0-0.2) k/uL Sodium (137-145) mmol/L Potassium (3.5-5.1) mmol/L Chloride (98-107) mmol/L Carbon Dioxide (22-30) mmol/L Anion Gap mmol/L BUN (7-17) mg/dL Creatinine (0.52-1.04) mg/dL Est GFR (CKD-EPI)AfAm (>60 ml/min/1.73 sqM) Est GFR (CKD-EPI)NonAf (>60 ml/min/1.73 sqM) Glucose (74-99) mg/dL Calcium (8.4-10.2) mg/dL Total Bilirubin (0.2-1.3) mg/dL AST (14-36) U/L ALT (4-34) U/L Alkaline Phosphatase (38-126) U/L Total Protein (6.3-8.2) g/dL Albumin (3.5-5.0) g/dL HCG, Quant mIU/mL Urine Color Light Yellow Urine Appearance Clear (Clear) Urine pH 6.5 (5.0-8.0) Ur Specific [place] 1.021 (1.001-1.035) Urine Protein Negative (Negative) Urine Glucose (UA) Negative (Negative) Urine Ketones Negative (Negative) Urine Blood Large H (Negative) Urine Nitrite Negative (Negative) Urine Bilirubin Negative (Negative) Urine Urobilinogen <2.0 (<2.0) mg/dL Ur Leukocyte Esterase Negative (Negative) Urine RBC 1 (0-5) /hpf Urine WBC 4 (0-5) /hpf Ur Squamous Epith Cells 5 H (0-4) /hpf Amorphous Sediment Rare H (None) /hpf Hyaline Casts 1 (0-2) /lpf Urine Mucus Many H (None) /hpf Urine HCG, Qual Detected (Not Detectd) Blood Type Blood Type Recheck Bld Type Recheck Status Disposition <Moody Moreno - Last Filed: 07/08/24 16:20> Is patient prescribed a controlled substance at d/c from ED?: No Time of Disposition: 21:58 <Bijan Campbell - Last Filed: 07/09/24 02:51> Clinical Impression: Threatened Disposition: HOME SELF-CARE Condition: Good Instructions (If sedation given, give patient instructions): Threatened Miscarriage (ED) Additional Instructions: Follow-up with your LATHE SANDER. Report back to ER with any new or worsening symptom s. You will need to have a repeat beta-hCG drawn in 48 hours, you will be given an order today that you can [email or web address] to have this performed. Referrals: None,Stated [Primary Care Provider] - 1-2 days Soraya Bonner MD [STAFF PHYSICIAN] - 1-2 days
--- NOTE | 2024-07-08 20:16 | US ---
EXAMINATION TYPE: Transabdominal DATE OF EXAM: 07/08/2024 7:49 PM COMPARISON: NONE for this gestation CLINICAL INDICATION: Female, 23 years old with history of , spotting/bleeding; Vaginal bleedi ng. Hx 1 miscarriage and D and C per patient. TECHNIQUE: Transvaginal (TV) and Transabdominal (TA) with grayscale and color Doppler imaging includi ng first trimester . FINDINGS: EXAM MEASUREMENTS: GESTATIONAL AGE / DATING Physician Established: Not yet established Dates by LMP: Unknown Dates by First Scan: This is first scan Dates by Current Scan for: (6 weeks/1 day) EDC: 03/02/2025 by gestational sac measurement MATERNAL ANATOMY Uterus: 6.5 x 4.5 x 4.0 cm. Anteverted. Cervix appears heterogeneous. Subcentimeter anechoic area in cervix. Right Ovary: Not seen Left Ovary: 2.9 x 2.1 x 2.1 cm. *Complex area with peripheral vascularity seen: 1.7 x 1.3 x 1.7 cm. Post CDS / Adnexa: Appear wnl Presence of free fluid: No Presence of corpus luteal cyst: Possible within left ovary, complex area was seen as mentioned above. Presence of subchorionic bleed: Possible- complex area seen adjacent to the gestational sac: 1.5 x 1. 2 x 0.4 cm. GESTATION / SURVEY CRL: Not seen Gestational Sac morphology: Gestational Sac MSD: 1.39 cm (6 weeks/1 day) Yolk Sac (normal less than 6mm): 2.6 mm Heart Rate: No CRL seen IUP: Only gestational sac and yolk sac visualized. Date of LMP: Unknown per patient Beta HcG (if available): Not available. IMPRESSION: 1. Intrauterine gestational sac estimated at 6 weeks 1 day gestation. Yolk sac is present. No p ole is identified. Short-term follow-up and correlation with beta-hCG is recommended. 2. Small subchorionic hemorrhage likely present adjacent to the gestational sac. [facility], , 07/08/2024 8:13 PM
[2024-07-08 20:52] LABS: Basophils % (A) 1 %; Eosinophils % (A) 1 %; HCT 42.3 % (34.0-46.0); HGB 14.3 gm/dL (11.4-16.0); Lymphocytes # (A) 1.5 k/uL (1.0-4.8); Lymphocytes % (A) 28 %; MCH 31.2 pg (25.0-35.0); MCHC 33.8 g/dL (31.0-37.0); MCV 92.3 fL (80.0-100.0); Mean Platelet Volume 8.3; Monocytes # (A) 0.4 k/uL (0-1.0); Monocytes % (A) 7 %; Neutrophils # (A) 3.3 k/uL (1.3-7.7); Neutrophils % (A) 61 %; Platelet Count 196 k/uL (150-450); RBC 4.59 m/uL (3.80-5.40); RDW 11.7 % (11.5-15.5); WBC 5.3 k/uL (3.8-10.6)
[2024-07-08 21:02] LABS: ALT 13 U/L (4-34); AST 21 U/L (14-36); African American GFR (CKD) >90 (>60 ml/min/1.73 sqM); Albumin 4.4 g/dL (3.5-5.0); Alkaline Phosphatase 31 U/L (38-126); Anion Gap 9 mmol/L; Blood Urea Nitrogen 9 mg/dL (7-17); Calcium 9.1 mg/dL (8.4-10.2); Carbon Dioxide 23 mmol/L (22-30); Chloride 104 mmol/L (98-107); Glucose 93 mg/dL (74-99); Non-African American GFR(CKD) >90 (>60 ml/min/1.73 sqM); Potassium 3.8 mmol/L (3.5-5.1); Sodium 136 mmol/L (137-145); Total Bilirubin 0.4 mg/dL (0.2-1.3); Total Protein 6.6 g/dL (6.3-8.2)
[2024-07-08 21:15] LABS: Amorphous Sediment,Urine Rare /hpf; Appearance,Urine Clear (Clear); Bilirubin,Urine Negative (Negative); Blood,Urine Large (Negative); Color,Urine Light Yellow; Glucose,Urine (UA) Negative (Negative); Hyaline Casts,Urine 1 /lpf (0-2); Ketones,Urine Negative (Negative); Leukocyte Esterase,Urine Negative (Negative); Mucus,Urine Many /hpf; Nitrite,Urine Negative (Negative); PH, Urine 6.5 (5.0-8.0); Protein,Urine Negative (Negative); RBC,Urine 1 /hpf (0-5); Specific Gravity,Urine 1.021 (1.001-1.035); Squamous Epithelial Cell,Urine 5 /hpf (0-4); Urobilinogen,Urine <2.0 mg/dL (<2.0); WBC,Urine 4 /hpf (0-5)
[2024-07-08 21:48] LABS: HCG,Quantitative Serum 17955.4 mIU/mL
[2024-07-08 22:15] VITALS: BP 114/70; PULSE 75; RESP 16; TEMP 98.2
== END 2024-07-08 22:28 | disposition home or self-care (01) ==
LOC: EC 15:05
DX: O20.0 Threatened abortion (principal); O99.332 Smoking (tobacco) complicating pregnancy, second trimester; F17.200 Nicotine dependence, unspecified, uncomplicated; Z91.040 Latex allergy status; Z88.8 Allergy status to other drugs, medicaments and biological substances; Z3A.16 16 weeks gestation of pregnancy
CPT/HCPCS: 36415; 76801; 76817; 80053; 81001; 81025; 84702; 85025; 86900; 86901; 99284

== ENCOUNTER → 2024-07-10 | Outpatient (CLI) | payer OTHER | END | disposition home or self-care (01) | LOC: LABWHC1 13:37 | PROVIDERS: ATTEND Obstetrics & Gynecology | DX: O20.0 Threatened abortion (principal); Z3A.00 Weeks of gestation of pregnancy not specified | CPT/HCPCS: 36415; 84702 ==

== ENCOUNTER 2024-08-29 16:36 | Emergency (ER) | payer OTHER ==
[2024-08-29 17:09] LABS: Amorphous Sediment,Urine Rare /hpf; Appearance,Urine Cloudy (Clear); Bacteria,Urine Moderate /hpf; Bilirubin,Urine Negative (Negative); Blood,Urine Negative (Negative); Color,Urine Yellow; Glucose,Urine (UA) Negative (Negative); Ketones,Urine Negative (Negative); Leukocyte Esterase,Urine Large (Negative); Mucus,Urine Moderate /hpf; Nitrite,Urine Negative (Negative); Protein,Urine Trace (Negative); RBC,Urine <1 /hpf (0-5); Specific Gravity,Urine 1.017 (1.001-1.035); Squamous Epithelial Cell,Urine 4 /hpf (0-4); Urobilinogen,Urine <2.0 mg/dL (<2.0); WBC,Urine 6 /hpf (0-5)
--- NOTE | 2024-08-29 17:54 | US ---
EXAMINATION TYPE: Transabdominal DATE OF EXAM: 08/29/2024 5:36 PM COMPARISON: US(07/08/2024) CLINICAL INDICATION: Female, 24 years old with history of abd pain; pt states someone at work " said something" and stressed pt out, pt instantly started feeling pain in stomach, hx of one miscarriage G :2, P: 0 TECHNIQUE: Transabdominal (TA) with grayscale and color Doppler imaging including first trimester pre gnancy. FINDINGS: EXAM MEASUREMENTS: GESTATIONAL AGE / DATING Physician Established: (13 weeks/1 days) EDC: 03/05/2025 Dates by LMP: LMP unknown Dates by First Scan: (6 weeks/1 days) EDC: 03/02/2025 Dates by Current Scan for: (13 weeks/1 days) EDC: 03/05/2025 MATERNAL ANATOMY Uterus: 10.3x8.1x10.0cm Right Ovary: 2.5x1.2x1.6cm Left Ovary: 2.0x2.0x2.0cm Post CDS / Adnexa: no ff seen Presence of free fluid: no Presence of corpus luteal cyst: n/a Presence of subchorionic bleed: n/a GESTATION / SURVEY CRL: 67.5 (13 weeks/1 days) Gestational Sac morphology: Normal Yolk Sac (normal less than 6mm): not seen at this time Cardiac Activity/Heart Rate: 150 bpm Rhythm: Normal IUP: Viable IUP Beta HcG (if available): Not available at this time IMPRESSION: Single live intrauterine with calculated ultrasound age of 13 weeks 1 day by crown rump fani gth with an estimated date of delivery of 03/05/2025. Dates are discordant by last menstrual period. [facility], , 08/29/2024 5:52 PM
--- NOTE | 2024-08-29 18:47 | ED ---
General Adult HPI - General Chief complaint: Abdominal Pain Stated complaint: 13wk preg abd pain Time Seen by Provider: 08/29/24 16:50 Source: patient, family, RN notes reviewed, old records reviewed Mode of arrival: ambulatory Limitations: no limitations - History of Present Illness Initial comments: Patient is a 24-year-old female presents emergency department for suprapubic abdominal discomfort, in the setting of . Denies any vaginal discharge or bleeding. Currently being treated for UTI. States pain has started over the last day or so. Similar to when she had a UTI diagnosed with it last week. Intermittent nausea and vomiting but none currently. Patient is with prior miscarriage. Has no acute complaints. Presents for further evaluation. Workup completed while patient was in triage and I evaluated her when she was placed in [facility]. - Related Data Previous Rx's Medication Instructions Recorded Nitrofurantoin Monohyd/M-Cryst 100 mg PO Q12HR 5 Days #10 cap 08/29/24 [Macrobid] Allergies Allergy/AdvReac Type Severity Reaction Status Date / Time latex Allergy Rash/Hives Verified 07/08/24 16:38 plastic Allergy Unknown Uncoded 07/08/24 16:38 Review of Systems ROS Statement: Those systems with pertinent positive or pertinent negative responses have been documented in the HPI. Review of Systems: CONST: Denies fever EYES: Denies blurry vision ENT: Denies nasal congestion C/V: Denies Chest pain RESP: Denies shortness of breath GI: Endorses suprapubic abdominal pain : Denies dysuria SKIN: Denies rash. MSK: Denies joint pain. NEURO: Denies headache ROS Other: All systems not noted in ROS Statement are negative. Past Medical History Past Medical History: No Reported History Additional Past Medical History / Comment(s): recent miscarriage, having some vag. bleeding but not heavy History of Any Multi-Drug Resistant Organisms: None Reported Past Surgical History: No Surgical Hx Reported Additional Past Surgical History / Comment(s): D&C Additional Past Anesthesia/Blood Transfusion Reaction / Comment(s): no family problems w/surg. or anesthesia that she knows of Past Psychological History: No Psychological Hx Reported Smoking Status: Former smoker, Vaper Past Alcohol Use History: None Reported, Occasional Past Drug Use History: None Reported, Marijuana General Exam - General Exam Comments Initial Comments: General: Appears in no acute distress. HEAD: Normal with no signs of head trauma. EYES: EOMI ENT: Hearing grossly intact, normal oropharynx. RESPIRATORY: Clear breath sounds bilaterally. No wheezes, rales, or rhonchi. C/V: Regular rate and rhythm. S1 and S2 auscultated, peripheral pulses 2+ and intact throughout ABD: Abd is soft, nontender, nondistended. No guarding or rebound tenderness. No peritoneal signs. EXT: No obvious deformity. SKIN: No rashes or lesions observed on exposed skin. NEURO: Alert and oriented x 4. Limitations: no limitations Course Vital Signs 08/29/24 08/29/24 16:48 19:01 Temperature 98.2 F 98.1 F Pulse Rate 90 84 Respiratory 20 18 Rate Blood Pressure 112/69 115/72 O2 Sat by Pulse 99 99 Oximetry Medical Decision Making - Medical Decision Making Was pt. sent in by a medical professional or institution (, PA, JOB PLACEMENT SPECIALIST, urgent care, hospital, or longterm...) When possible be specific @ -No Did you speak to anyone other than the patient for history (EMS, parent, family, police, friend...)? What history was obtained from this source @ -No Did you review nursing and triage notes (agree or disagree)? Why? @ -I reviewed and agree with nursing and triage notes Were old charts reviewed (outside hosp., previous admission, EMS record, old EKG, old radiological studies, urgent care reports/EKG's, longterm records)? Report findings @ -No old charts were reviewed Differential Diagnosis (chest pain, altered mental status, abdominal pain women, abdominal pain men, vaginal bleeding, weakness, fever, dyspnea, syncope, headache, dizziness, GI bleed, back pain, seizure, CVA, palpatations, mental health, musculoskeletal)? @ -UTI, miscarriage, threatened miscarriage. This list is not all inclusive. EKG interpreted by me (3pts min.). @ -None X-rays interpreted by me (1pt min.). @ -None done CT interpreted by me (1pt min.). @ -None done U/S interpreted by me (1pt. min.). @ -Ultrasound reveals a definitive IUP dating at 13 weeks and 1 day with a heart rate of 150 bpm What testing was considered but not performed or refused? (CT, X-rays, U/S, labs)? Why? @ -None What meds were considered but not given or refused? Why? @ -None Did you discuss the management of the patient with other professionals (professionals i.e. , PA, JOB PLACEMENT SPECIALIST, lab, RT, psych nurse, social science professor, pool installer, teacher, probation officer, spring encaser)? Give summary @ -No Was smoking cessation discussed for >3mins.? @ -No Was critical care preformed (if so, how long)? @ -No Were there social determinants of health that impacted care today? How? (Homelessness, low income, unemployed, alcoholism, drug addiction, transportation, low edu. Level, literacy, decrease access to med. care, long-term, rehab)? @ -No Was there de-escalation of care discussed even if they declined (Discuss DNR or withdrawal of care, Hospice)? DNR status @ -No What co-morbidities impacted this encounter? (DM, HTN, Smoking, COPD, CAD, Cancer, CVA, ARF, Chemo, Hep., AIDS, mental health diagnosis, sleep apnea, morbid obesity)? @ -None Was patient admitted / discharged? Hospital course, mention meds given and route, prescriptions, significant lab abnormalities, going to OR and other pertinent info. @ -Patient presents with suprapubic abdominal discomfort. Workup completed in triage. Ultrasound shows a definitive IUP at 13 weeks and 1 day with a heart rate of 150 bpm. This is all adequate. Urinalysis does show findings concerning for UTI. I discussed this with the patient. Urine culture will be sent. Patient is currently on Keflex for UTI however I will switch her to Macrobid. Recommend follow-up with her [employer] in the next 1 to 3 days. States she gets intermittent nausea and was on Zofran previously and therefore I will give her a starter pack of Zofran as well. Patient was in agreement this plan. She is asymptomatic at my time of discharge. Vitals are within acceptable limits. Discharged home at this time. I will provide the patient with a prescription for Macrobid. I instructed the patient to follow up with their PCP in the next 1-3 days.. I explained that the patient should return to the emergency department if they experience any worsening symptoms. Strict return precautions were discussed with the patient. The patient expressed understanding of these instructions. I answered all questions that the patient had. The patient was discharged home in good condition with their prescriptions and follow up information. Undiagnosed new problem with uncertain prognosis? @ -No Drug Therapy requiring intensive monitoring for toxicity (Heparin, Nitro, Insulin, Cardizem)? @ -No Were any procedures done? @ -No Diagnosis/symptom? @ -UTI in the setting of Acute, or Chronic, or Acute on Chronic? @ -Acute Uncomplicated (without systemic symptoms) or Complicated (systemic symptoms)? @ -Complicated Side effects of treatment? @ -No Exacerbation, Progression, or Severe Exacerbation? @ -No Poses a threat to life or bodily function? How? (Chest pain, [place], [place], pneumonia, PE, COPD, DKA, ARF, appy, cholecystitis, CVA, Diverticulitis, Homicidal, Suicidal, threat to staff... and all critical care pts) @ -Yes - Lab Data Lab Results 08/29/24 Range/Units 16:54 Urine Color Yellow Urine Appearance Cloudy H (Clear) Urine pH 8.0 (5.0-8.0) Ur Specific Cisco 1.017 (1.001-1.035) Urine Protein Trace H (Negative) Urine Glucose (UA) Negative (Negative) Urine Ketones Negative (Negative) Urine Blood Negative (Negative) Urine Nitrite Negative (Negative) Urine Bilirubin Negative (Negative) Urine Urobilinogen <2.0 (<2.0) mg/dL Ur Leukocyte Esterase Large H (Negative) Urine RBC <1 (0-5) /hpf Urine WBC 6 H (0-5) /hpf Ur Squamous Epith Cells 4 (0-4) /hpf Amorphous Sediment Rare H (None) /hpf Urine Bacteria Moderate H (None) /hpf Urine Mucus Moderate H (None) /hpf Disposition Clinical Impression: , UTI (urinary tract infection) Disposition: HOME SELF-CARE Condition: Good Instructions (If sedation given, give patient instructions): Urinary Tract Infection in (ED) Prescriptions: Nitrofurantoin Monohyd/M-Cryst [Macrobid] 100 mg PO Q12HR 5 Days #10 cap Is patient prescribed a controlled substance at d/c from ED?: No Referrals: None,Stated [Primary Care Provider] - 1-2 days Time of Disposition: 18:47
[2024-08-29] MEDS: NITROFURANTOIN MONOHYD/M-CRYST 100 MG CAP PO STA (18:56)
[2024-08-29] MEDS: ONDANSETRON 4 MG ODT STARTER PACK 2 TAB BTL PO STA (18:56)
[2024-08-29 19:02] VITALS: BP 115/72; PULSE 84; RESP 18; TEMP 98.1
== END 2024-08-29 19:03 | disposition home or self-care (01) ==
LOC: EC 16:36
DX: O23.41 Unspecified infection of urinary tract in pregnancy, first trimester (principal); N39.0 Urinary tract infection, site not specified; O99.331 Smoking (tobacco) complicating pregnancy, first trimester; F17.290 Nicotine dependence, other tobacco product, uncomplicated; Z91.040 Latex allergy status; Z91.09 Other allergy status, other than to drugs and biological substances; Z3A.13 13 weeks gestation of pregnancy
CPT/HCPCS: 81001; 87086; 76801; 99284; S0119

== ENCOUNTER 2025-01-22 11:08 | Outpatient (CLI) | payer OTHER ==
[2025-01-22 12:22] LABS: Bilirubin,Urine 1+ (Negative); Blood,Urine Negative (Negative); Color,Urine Dark Brown; Glucose,Urine (UA) Trace (Negative); Ketones,Urine Trace (Negative); Leukocyte Esterase,Urine Moderate (Negative); Mucus,Urine Many /hpf; Nitrite,Urine Negative (Negative); PH, Urine 6.0 (5.0-8.0); Protein,Urine 1+ (Negative); Specific Gravity,Urine 1.038 (1.001-1.035); Squamous Epithelial Cell,Urine 24 /hpf (0-4); Urobilinogen,Urine 6.0 mg/dL (<2.0); WBC,Urine 15 /hpf (0-5)
[2025-01-22] MEDS: LACTATED RINGERS 1,000 ML BAG IV STA (12:22)
[2025-01-22 13:42] VITALS: BP 119/67; PULSE 111; RESP 16; TEMP 97.5
--- NOTE | 2025-02-22 10:02 | P.MSEPDOC ---
Presenting Problems - Arrival Data Date of Arrival on Unit: 01/22/25 Time of Arrival on Unit: 11:08 Mode of Transport: Ambulatory - Complaint OB-Reason for Admission/Chief Complaint: Possible Onset of Labor Medical History - Information : 2 Para: 0 Term: 0 : 0 Abortions: Spontaneous or Elective: 0 Number of Living Children: 0 - Gestational Age Gestational Age by ADITYA (wks/days): 34 Weeks and 0 Days Review of Systems - Review of Systems Constitutional: No problems Breast: No problems ENT: No problems Cardiovascular: No problems Respiratory: No problems Gastrointestinal: No problems Genitourinary: No problems Musculoskeletal: No problems Neurological: No problems Skin: No problems Vital Signs - Temperature Temperature: 97.5 F Temperature Source: Temporal Artery Scan - Pulse Right Brachial Pulse Rate: 111 Pulse Assessment Method: Automatic Cuff - Respirations Respiratory Rate: 16 Oxygen Delivery Method: Room Air O2 Sat by Pulse Oximetry: 99 - Blood Pressure Right Arm Blood Pressure: 119/67 Blood Pressure Mean: 84 Blood Pressure Source: Automatic Cuff Medical Screen Scoring - Cervical Exam Dilation (cm): 0 - Uterine Contractions Frequency From (mins): 4 Frequency To (mins): 5 Duration From (seconds): 40 Duration To (seconds): 60 Intensity: Mild Resting: Soft to palpation - Assessment - Baby A Baseline FHR: 145 Heart Rate - NICHD Category: Category I (Normal) NST: Reactive Physician Notification - Physician Notified Physician Notified Date: 01/22/25 Physician Notified Time: 12:54 Physician: Soraya Bonner New Order Received: Yes - Notification Comment Comment: [id number]-Dr. Bonner in dept. Report given on pt c/o. VS WNL. Cat 1 FHTs. Contractions tracing q4-5 minutes. Urine sample collected, urine ambered colored. Orders received to send urine, administer 1L LR fluid bolus, and perform cervical exam. [id number]-Dr. Bonner in dept. Update given on pt. Pt appears more comfortable. Lab results reviewed by Orders received to send urine for culture and to d/c pt to home. Maternal Triage Index - Urgent/Priority 2 Urgent Priority 2: Yes Provider Notified: Soraya Bonner Provider Notified Time: 11:54 Criteria Met for Priority 2: Pt presents to triage with c/o of contractions that started at 0800. Pt rating pain 10 out of 10. Pt reports losing small piece of mucus plug this am. Disposition - Disposition OB Disposition: Discharge to home Discharge Date: 01/22/25 Discharge Time: 13:10 I agree with the RN Medical Screening Exam: Yes Physician's MSE Comment: I have neither seen nor examined the patient Case reviewed; plan agreed upon as documented in EMR&OBIX.: Yes Diagnosis: RELATED CONDITIONS, UNSPECIFIED, THIRD TRIMESTER
== END 2025-01-22 13:10 | disposition home or self-care (01) ==
LOC: FBPOP 11:08
PROVIDERS: ATTEND Obstetrics & Gynecology
DX: O26.893 Other specified pregnancy related conditions, third trimester (principal); Z91.040 Latex allergy status; Z91.048 Other nonmedicinal substance allergy status; Z3A.34 34 weeks gestation of pregnancy
CPT/HCPCS: 59025; 81001; 87086; 96360; 99213; 99214